=== PATIENT | female | born 1965 | race Caucasian/White ===

== ENCOUNTER 2018-12-06 10:38 | Day surgery (SDC) | payer OTHER ==
[~2018-12-06 10:38] MED LIST: CEFAZOLIN 1 GM INJ; CEFAZOLIN 2 GM/50 ML (PMX) 50 ML IVPB; DEXAMETHASONE 4 MG/ML 5 ML INJ; SOD CHLORIDE 0.9% 1,000 ML IV
[2018-12-06] MEDS ORDERED: FENTAnyl 50 MCG/ML VIAL (11:37)
[2018-12-06] MEDS ORDERED: MIDAZOLAM 1 MG/ML 2 ML INJ (11:38)
[2018-12-06] MEDS ORDERED: ONDANSETRON 4 MG INJ (11:38)
[2018-12-06] MEDS ORDERED: SUCCINYLCHOLINE CHLORIDE 100 MG/5 ML SYG IV (11:39)
[2018-12-06] MEDS ORDERED: LIDOCAINE 2% (SDV) 5 ML INJ (11:39)
[2018-12-06] MEDS ORDERED: PROPOFOL 20 ML (11:39)
[2018-12-06] MEDS ORDERED: MEPERIDINE 25 MG INJ IV (13:30)
[2018-12-06] MEDS ORDERED: FENTAnyl 50 MCG/ML VIAL IV ×2 (13:30)
[2018-12-06] MEDS ORDERED: ONDANSETRON 4 MG INJ IV ×2 (13:30→15:30)
[2018-12-06] MEDS ORDERED: MIDAZOLAM 1 MG/ML 2 ML INJ IV (13:30)
[2018-12-06] MEDS ORDERED: IPRATROPIUM (NEB) 0.5 MG/2.5 ML AMP HHN (13:30)
[2018-12-06] MEDS ORDERED: LEVALBUTEROL (NEB) 1.25 MG/0.5 ML AMP HHN (13:30)
[2018-12-06] MEDS ORDERED: DIPHENHYDRAMINE 50 MG INJ IV (13:30)
[2018-12-06] MEDS ORDERED: HYDROmorphONE 1 MG/5 ML IV SYRINGE IV ×2 (13:30)
[2018-12-06] MEDS ORDERED: hydrALAzine 20 MG INJ IV (13:30)
[2018-12-06] MEDS ORDERED: LORAZEPAM 2 MG INJ IV (13:30)
[2018-12-06] MEDS ORDERED: LABETALOL HCL 20MG INJ IV (13:30)
[2018-12-06] MEDS: BUPIVACAINE 0.5%/EPI (SDV) 30 ML INJ (13:57)
[2018-12-06] MEDS ORDERED: morphine 2 MG INJ IV (15:30)
[2018-12-06] MEDS ORDERED: HYDROCODONE/APAP (5/325) TAB PO (15:30)
[2018-12-06] MEDS: HYDROCODONE/APAP (5/325) TAB PO (16:54)
== END 2018-12-06 17:41 | disposition home or self-care (01) ==
LOC: SDS 10:38
DX: E04.1 Nontoxic single thyroid nodule (principal)
CPT/HCPCS: 60220; 84703; 88307